=== PATIENT | female | born 1950 | race Caucasian/White ===

== ENCOUNTER 2023-07-21 17:09 | Emergency (ER) | payer OTHER ==
[2023-07-21 17:16] VITALS: BMI 23.3
[2023-07-21] MEDS ORDERED: FAMOTIDINE 20 MG/50 ML IVPB 20 MG/50 ML MG IVPB ONE (18:30)
[2023-07-21] MEDS ORDERED: ACETAMINOPHEN INJECTION 100 ML IVPB ONE (18:30)
[2023-07-21] MEDS ORDERED: ONDANSETRON 4 MG/2 ML VIAL ONE (18:30)
[2023-07-21 18:40] LABS: EOS % 0.1 % (0-4.5); HEMATOCRIT 37.4 % (32.4-45.2); HEMOGLOBIN 12.3 GM/dL (10.7-15.3); LYMPH % 7.2 % (8-40); MCH 28.7 pg (25.7-33.7); MCHC 32.9 g/dl (32.0-36.0); MEAN CELL VOLUME 87.1 fl (80-96); MEAN PLT VOLUME 7.4 fl (7.5-11.1); NEUT % 86.7 % (42.8-82.8); PLATELET COUNT 227 10^3/uL (134-434); RBC 4.29 M/mm3 (3.60-5.2); RDW 14.1 % (11.6-15.6)
[2023-07-21] MEDS: LACTATED RINGERS SOLUTION 1000 ML INFUS.BAG IV ONE (18:40)
[2023-07-21] MEDS: ONDANSETRON 4 MG/2 ML VIAL IVPUSH ONE (18:41)
[2023-07-21] MEDS: FAMOTIDINE 20 MG/50 ML IVPB 20 MG/50 ML MG IVPB ONE (18:41)
[2023-07-21] MEDS: ACETAMINOPHEN 1000 MG/100 ML BAG IVPB ONE (18:42)
[2023-07-21 19:20] LABS: POTASSIUM 4.5 mmol/L (3.5-5.1)
[2023-07-21 19:22] LABS: BLOOD UREA NITROGEN 17.6 mg/dL (7-18); CALCIUM 9.4 mg/dL (8.5-10.1)
[2023-07-21 19:23] LABS: ALBUMIN 4.4 g/dl (3.4-5.0); MAGNESIUM 1.9 mg/dL (1.8-2.4)
[2023-07-21 19:25] LABS: CREATININE 0.8 mg/dL (0.55-1.3)
[2023-07-21 19:27] LABS: BILIRUBIN,TOTAL 0.6 mg/dL (0.2-1); TOT PROT 7.3 g/dl (6.4-8.2)
[2023-07-21 22:00] VITALS: BP 133/79; PULSE 78; RESP 19; TEMP 97.9
== END 2023-07-21 22:00 | disposition home or self-care (01) ==
LOC: JER 17:09
PROC: 3E033GC Introduction of Other Therapeutic Substance into Peripheral Vein, Percutaneous Approach (ICD-10-PCS; principal; 2023-07-21)
PROC: 3E033GC Introduction of Other Therapeutic Substance into Peripheral Vein, Percutaneous Approach (ICD-10-PCS; 2023-07-21)
PROC: 3E033NZ Introduction of Analgesics, Hypnotics, Sedatives into Peripheral Vein, Percutaneous Approach (ICD-10-PCS; 2023-07-21)
DX: R11.2 Nausea with vomiting, unspecified (principal); R51.9 Headache, unspecified; R19.7 Diarrhea, unspecified; J34.89 Other specified disorders of nose and nasal sinuses; A08.4 Viral intestinal infection, unspecified; Z20.822 Contact with and (suspected) exposure to COVID-19
CPT/HCPCS: 0241U-QW; 36415; 70450-TC; 70496-TC; 70498-TC; 80053; 83690; 83735; 85025; 93005; 93010; 99285-25; J0131